=== PATIENT | female | born 2000 | race Two or more races ===

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

== ENCOUNTER 2021-02-06 09:13 | Emergency (ER) | payer OTHER ==
[~2021-02-06] VITALS: Ht 160 cm; Wt 63.8 kg
[2021-02-06] MEDS ORDERED: ONDANSETRON ODT 4 MG ONE (09:38)
[2021-02-06] MEDS ORDERED: OXYcodone/APAP 5/325MG TABLET ONE (09:39)
--- NOTE | 2021-02-06 09:48 | NUR ---
"2 DAYS AGO [facility] [place] [facility] AND I FELL OFF THE [facility]I. SINCE MAEGAN BEEN DIZZY, MAEGAN HAD CP, AND MAEGAN HAD A BAD HEADACHE" NO NEURO DEFICITS, CLEAR LUNGS MEDICATED PER EMAR WITH PO PAIN/NAUSEA MEDICINES THEN TRANSPORTED TO CT/XRAY
[2021-02-06] MEDS ORDERED: ONDANSETRON ODT 4 MG PO ONE (10:00)
[2021-02-06] MEDS ORDERED: OXYcodone/APAP 5/325MG TABLET PO ONE (10:00)
--- NOTE | 2021-02-06 10:48 | NUR ---
WITH REASSESSMENT NO RESPIRATORY OF NEUROLOGICAL CHANGES PAIN IMPROVED TO 2/10
[2021-02-06] MEDS ORDERED: COVID-19 VACC,MRNA(MODERNA)/PF 100 MCG/0.5ML IM-VACC ONE ×2 (11:00)
[2021-02-06 12:07] VITALS: BP 149/72
== END 2021-02-06 12:09 | disposition home or self-care (01) ==
LOC: ED 10:09
DX: S29.012A Strain of muscle and tendon of back wall of thorax, initial encounter (principal); S20.219A Contusion of unspecified front wall of thorax, initial encounter; R94.31 Abnormal electrocardiogram [ECG] [EKG]; Z23 Encounter for immunization; W01.0XXA Fall on same level from slipping, tripping and stumbling without subsequent striking against object, initial encounter; Y93.89 Activity, other specified; Y92.828 Other wilderness area as the place of occurrence of the external cause; Y99.8 Other external cause status
CPT/HCPCS: 0011A; 70450; 71046; 72072; 91301; 93005; 99284; Q0162